=== PATIENT | female | born 1995 | race Caucasian/White ===

== ENCOUNTER 2021-11-30 18:08 | Emergency (ER) | payer MEDICAID ==
[~2021-11-30] VITALS: Ht 165.1 cm; Wt 51.7 kg
--- NOTE | 2021-11-30 19:14 | NUR ---
DR LESLIE EVALUATED PT AND EKG TRACING.
[2021-11-30 19:15] VITALS: BP 100/60
== END 2021-11-30 19:15 | disposition home or self-care (01) ==
LOC: ER 18:10
DX: Z01.810 Encounter for preprocedural cardiovascular examination (principal)
CPT/HCPCS: 93005; A4663